=== PATIENT | female | born 1955 | race Asian ===

== ENCOUNTER → 2018-04-05 09:02 | Outpatient (CLI) | payer OTHER, SELFPAY ==
--- NOTE | 2018-04-05 | DI.US.S_ITS ---
PROCEDURE: US PELVIC COMPLETE INDICATIONS: POST MENOPAUSAL BLEEDING TECHNIQUE: Real-time scanning was performed of the pelvic organs, with image documentation. Additional endovaginal scanning was necessary due to incomplete visualization of the adnexal and endometrial structures by transabdominal scanning. COMPARISON: [facility], , PELVIC COMPLETE, 06/12/2015, 13:27. FINDINGS: Transabdominal scanning: Limited scanning through the kidneys shows no hydronephrosis. Multiple right renal cysts present, largest measuring 2.2 cm. No pathologic free abdominal or pelvic fluid. Endovaginal scanning: Uterus: Uterus is normal in size at 5.2 x 2.7 x 3.7 cm. The endometrium is not well-visualized and there is a linear, shadowing echogenic focus. Several non-shadowing punctate echogenic foci seen within the lower uterine segment likely related to residual blood products. Ovaries: Ovaries not visualized bilaterally. No adnexal masses seen. IMPRESSION: 1. Linear, shadowing echogenic focus within the endometrial complex which has an appearance suggesting possible intrauterine device. Recommend clinical correlation and if indicated followup ultrasound could be performed in 6-8 weeks for further assessment. 2. Ovaries not visualized. 3. Right renal cysts. Dictated by: Maximo OHARAA Interpreted: Poonam Vasques MD on 04/05/2018 at 9:59 Approved by: Poonam Vasques MD, PhD on 04/05/2018 at 14:37
== END ==
PROVIDERS: Family Provider Family Medicine; PCP Family Medicine; Visit Provider Nurse Practitioner Family
DX: N95.0 Postmenopausal bleeding (principal); N28.1 Cyst of kidney, acquired
CPT/HCPCS: 76830; 76856

== ENCOUNTER → 2018-06-28 12:43 | Outpatient (CLI) | payer OTHER, SELFPAY ==
--- NOTE | 2018-06-28 | DI.US.S_ITS ---
PROCEDURE: US RENAL COMPLETE INDICATIONS: FOLLOW UP RIGHT RENAL CYST TECHNIQUE: Real-time scanning was performed of the kidneys and bladder, with image documentation. COMPARISON: [facility], , US PELVIC COMPLETE, 04/05/2018, 9:16. FINDINGS: Kidneys: Kidneys are normal in size. Right kidney measures 11.7 cm long; left kidney measures 11.9 cm long. Right renal cortical thickness is 1.0 cm; left renal cortical thickness is 1.2 cm. Renal cortical echotexture is normal. No hydronephrosis or nephrolithiasis. No suspicious solid mass lesions. 3 simple right renal cysts, largest measuring 2.2 cm which is unchanged. 2 simple left renal cysts, largest measuring 13 mm. Bladder: Pre-void bladder volume is 384 mL. Post-void residual is 51 mL. Pre-void images demonstrate no intraluminal masses or stones. On pre-void images, bilateral ureteral jets are noted with color Doppler interrogation. (Of note, ureteral jets may not be detectable in up to 25% of cases due to insufficient differences in specific gravity between ureteral and bladder urine). Miscellaneous: No free pelvic fluid. IMPRESSION: Bilateral simple renal cysts unchanged. Dictated by: Maximo Bolaños [facility] Interpreted: Felipe Rene MD on 06/28/2018 at 16:52 Approved by: Felipe Rene M.D. on 06/29/2018 at 10:00
== END ==
PROVIDERS: Family Provider Family Medicine; PCP Family Medicine; Visit Provider Family Medicine
DX: N28.1 Cyst of kidney, acquired (principal)
CPT/HCPCS: 76770

== ENCOUNTER → 2019-12-03 15:14 | Outpatient (CLI) | payer BC, SELFPAY ==
[2019-12-03 21:57] LABS: COVID19 -Nasal RAPID Negative (Negative)
== END ==
PROVIDERS: Family Provider Family Medicine; PCP Family Medicine; Visit Provider Physician Assistant
DX: Z01.812 Encounter for preprocedural laboratory examination (principal)
CPT/HCPCS: 87635

== ENCOUNTER → 2019-12-06 15:05 | Outpatient (CLI) | payer BC, SELFPAY ==
--- NOTE | 2019-12-07 06:07 | DI.NM.S_ITS ---
DATE OF SERVICE: 12/06/2019 PROCEDURE: Exercise stress test. INDICATIONS: Chest pain. CONSENT: Informed consent was obtained from the patient after explaining benefits and the risks. EXERCISE STRESS TEST: The patient walked on Osvaldo protocol under the supervision of an attending staff. The patient walked for 9 minutes and 01 seconds, achieved 109 percent of target heart rate and normal blood pressure response. The patient achieved 10.1 METs of workload. Functional aerobic impairment -40 percent. Baseline rhythm was sinus. During stress, no convincing ischemic changes. At rest, there were occasional PVCs, but during stress, no significant arrhythmias seen. No chest pain. However, the patient felt pain between her shoulder blades, which got resolved in recovery. CONCLUSION: Exercise stress test is negative for inducible ischemia. Normal hemodynamic response. Functional aerobic impairment -40 percent the patient achieved 10.1 METs of workload. She walked on Osvaldo protocol for 9 minutes and 01 seconds. No significant arrhythmias during stress. The patient had transient pain between her shoulder blades during exercise. As far as exercise stress test is concerned, this is a low-risk exercise stress test. Clinical correlation is recommended. Mabel Rincon - MARIAN/argenis/lc doc#: [id number]/job#: [id number] dd: 12/06/2019 17:08:00 dt: 12/06/2019 19:18:00 DICTATING /COPIES TO: Ata Valencia MD COPIES MNE: CRISTINA;
== END ==
PROVIDERS: Family Provider Family Medicine; PCP Family Medicine; Referring Provider Family Medicine; Visit Provider Family Medicine
DX: R07.89 Other chest pain (principal)
CPT/HCPCS: 93016; 93017

== ENCOUNTER → 2019-12-07 15:41 | Outpatient (CLI) | payer OTHER, SELFPAY ==
--- NOTE | 2019-12-07 | DI.RAD.S_ITS ---
PROCEDURE: XR CHEST 2V INDICATIONS: Chest Pain TECHNIQUE: 2 views of the chest were acquired. COMPARISON: None. FINDINGS: Surgical changes and devices: Clips projecting over the left hemithorax. Lungs and pleura: Lungs are clear. No pleural effusions or pneumothorax. Mediastinum: Mediastinal contours are normal. Heart size is normal. Bones and chest wall: No suspicious bony abnormalities. Soft tissues appear unremarkable. IMPRESSION: No acute cardiopulmonary abnormality. Dictated by: Tariq Lombardo M.D. on 12/07/2019 at 16:17 Approved by: Tariq Lombardo M.D. on 12/07/2019 at 16:19
== END ==
PROVIDERS: Family Provider Family Medicine; PCP Family Medicine; Referring Provider Family Medicine; Visit Provider Family Medicine
DX: R07.89 Other chest pain (principal)
CPT/HCPCS: 71046

== ENCOUNTER → 2020-07-29 14:43 | Outpatient (CLI) | payer MEDICARE, OTHER, SELFPAY | PROVIDERS: Family Provider Family Medicine; PCP Family Medicine; Referring Provider Family Medicine; Visit Provider Family Medicine | DX: M85.89 Other specified disorders of bone density and structure, multiple sites (principal); M85.88 Other specified disorders of bone density and structure, other site | CPT/HCPCS: 77080 ==

== ENCOUNTER → 2020-11-11 10:09 | Outpatient (CLI) | payer MEDICARE, OTHER, SELFPAY ==
[2020-11-11 10:42] LABS: COVID19 -Nasal RAPID Negative (Negative)
== END ==
PROVIDERS: Family Provider Family Medicine; PCP Family Medicine; Visit Provider Physician Assistant
DX: Z20.822 Contact with and (suspected) exposure to COVID-19 (principal)
CPT/HCPCS: 87635

== ENCOUNTER → 2021-03-13 12:50 | Outpatient (CLI) | payer MEDICARE, OTHER, SELFPAY ==
--- NOTE | 2021-03-13 | DI.US.S_ITS ---
PROCEDURE: US PELVIC COMPLETE INDICATIONS: Postmenopausal bleeding TECHNIQUE: Real-time scanning was performed of the pelvic organs, with image documentation. Additional endovaginal scanning was necessary due to incomplete visualization of the adnexal and endometrial structures by transabdominal scanning. COMPARISON: [facility], , US PELVIC COMPLETE, 04/05/2018, 9:16. FINDINGS: Uterus: Uterus is anteverted and normal in size at 5.3 x 2.7 x 3.6 cm. The myometrium is homogeneous. The endometrium measures 1 mm combined thickness. Ovaries: The right ovary measures 1.6 x 0.8 x 1.2 cm. The left ovary measures 2.1 x 0.8 x 0.6 cm. Other: No pathologic free abdominal or pelvic fluid. IMPRESSION: Unremarkable pelvic ultrasound. Normal endometrial thickness. We strive to produce accurate, complete, and clear reports of imaging services. To assist us in improving patient care, this report was composed using standard report templates and voice recognition software. Therefore, it may contain abnormal punctuation, insertions and/or omissions. Occasional wrong-word or sound-alike substitutions may occur. Though we review the report and make efforts to correct it, we do recommend that the report be read carefully in proper context to recognize any text inaccuracies. Dictated by: Martín Martinez M.D. on 03/13/2021 at 14:26 Approved by: Martín Martinez M.D. on 03/13/2021 at 14:31
== END ==
PROVIDERS: Family Provider Family Medicine; PCP Family Medicine; Referring Provider Internal Medicine; Visit Provider Internal Medicine
DX: N95.0 Postmenopausal bleeding (principal); Z85.3 Personal history of malignant neoplasm of breast
CPT/HCPCS: 76856

== ENCOUNTER → 2021-08-27 11:25 | Outpatient (CLI) | payer MEDICARE, OTHER, SELFPAY ==
--- NOTE | 2021-08-27 | DI.CT.S_ITS ---
PROCEDURE: CT ABDOMEN PELVIS W CON INDICATIONS: Pelvic and perineal pain TECHNIQUE: After the administration of oral and IV contrast, axial sections were acquired from the lung bases to the pubic symphysis. Coronal and sagittal reformats were performed. For radiation dose reduction, the following was used: automated exposure control, adjustment of mA and/or kV according to patient size. COMPARISON: [facility], , PELVIC COMPLETE, 03/13/2021, 13:03. FINDINGS: Image quality: Excellent. Lung bases: Unremarkable. Heart: No significant findings. ABDOMEN: Liver: Normal size. Mild hepatic steatosis. There is a 1.1 cm hypodense nodule near the hepatic dome, most likely a cyst. Gallbladder: Unremarkable. Biliary ducts: Unremarkable. Pancreas: Unremarkable. Spleen: Unremarkable. Adrenal Glands: Mild left adrenal thickening or a small 0.7 cm left adrenal nodule. Kidneys and Ureters: Normal size and symmetrical enhancement. Bilateral hypodense cortical nodules are present, most likely renal cysts. Stomach and Bowel: Stomach, small bowel loops, and colon are normal in caliber. There is wall thickening of stomach and duodenum. There is diverticulosis without diverticulitis. Peritoneum: No abnormal intraperitoneal fluid. No free air. Ventral Wall: No hernia. Abdominal Nodes: No retroperitoneal or mesenteric adenopathy by size criteria. Vessels: Aorta and inferior vena cava are normal in size. PELVIS: Pelvic Organs: Suboptimally visualized due to metallic artifacts from bilateral hip prosthesis. Bladder: Unremarkable. Pelvic Nodes: No enlarged lymph nodes. Miscellaneous: No inguinal hernias are seen. Bones: Scoliosis and moderate to severe degenerative changes in lumbar spine. Mild anterior wedge deformity of L2 involving the superior endplate. Bilateral hip arthroplasties. Metallic artifacts partially obscure pelvis IMPRESSION: 1. A cause for pelvic pain is not identified. Pelvis is suboptimally visualized due to metallic artifacts from bilateral hip prosthesis. Consider pelvic ultrasound exam if clinically indicated. 2. Diverticulosis without diverticulitis. 3. Mild hepatic steatosis. 4. Mild wall thickening of stomach and duodenum. Differential diagnoses include gastritis/duodenitis versus artifact from inadequate distention. Dictated by: Humberto Seals M.D. on 08/27/2021 at 16:26 Approved by: Humberto Seals M.D. on 08/28/2021 at 22:24
== END ==
PROVIDERS: Family Provider Family Medicine; PCP Family Medicine; Referring Provider Family Medicine; Visit Provider Family Medicine
DX: R10.2 Pelvic and perineal pain (principal); K57.90 Diverticulosis of intestine, part unspecified, without perforation or abscess without bleeding; K76.0 Fatty (change of) liver, not elsewhere classified; E27.9 Disorder of adrenal gland, unspecified; K31.9 Disease of stomach and duodenum, unspecified
CPT/HCPCS: 74177

== ENCOUNTER 2021-12-21 07:13 | Day surgery (SDC) | payer MEDICARE, OTHER, SELFPAY ==
--- NOTE | 2021-12-21 | PATH_ITS ---
[facility] Accession Number: [id number] . 01 Material submitted: . PART A: gastrointestinal site - ANTRUM PART B: gastrointestinal site - GASTRIC POLYP . 01 Diagnosis: A. Gastric Antrum, Biopsy: Helicobacter pylori gastritis. Scattered forms morphologically consistent with Helicobacter pylori seen on H/E stain. Negative for intestinal metaplasia. Negative for dysplasia or malignancy. . B. Gastric Polyp, Biopsy: Helicobacter pylori gastritis. Negative for intestinal metaplasia. Negative for dysplasia or malignancy. . [facility] 12/24/2021 1743 Local . 01 Electronically signed: . Rayray Lopez MD, PhD, Pathologist NPI- [id number] . 01 Gross description: . A. Received in formalin, labeled with the patient's name and antrum, and consists of three irregular miguel soft tissue fragments ranging from 0.2 cm to 0.3 cm in greatest dimension. Submitted entirely in cassette A1. B. Received in formalin, labeled with the patient's name and gastric polyp, and consists of a single irregular miguel soft tissue fragment measuring 0.3 cm in greatest dimension. Submitted entirely in cassette B1. ([id number]) /FRR 12/24/2021 0321 Local . 01 Pathologist provided ICD-10: K29.70, B96.81 . 01 CPT . 749280, 734494 Specimen Comment: A courtesy copy of this report has been sent to [phone] Performed at: 01 [facility] [address] [place] [address] [id number] MD Alvin Fuchs MD Phone: [phone]
[2021-12-21 07:46] VITALS: BP 104/70; PULSE 77; RESP 16; TEMP 36.9; O2SAT 97; BMI 20.7
[2021-12-21 07:54] LABS: COVID19 -Nasal RAPID Negative (Negative)
--- NOTE | 2021-12-21 08:04 | PM.HP.1 ---
History of Present Illness History of Present Illness Date Patient Seen: 12/21/21 Time Patient Seen: 08:04 Chief complaint: SDC Narrative: I reviewed my recent office note from last month. She has not really tolerated the psyllium fiber. This has created some abdominal discomfort so she stopped this. Patient History Surgical History History of hip replacement History of knee replacement Status post surgery (02/04/14) Status post surgery (07/11/15) Family & Social History Social History: household members spouse Tobacco & Substance use: Smoking Status Never smoker alcohol intake current alcohol intake frequency a few times a month Substance Use Type does not use Meds Home Medications and Allergies Home Medications Medication Instructions Recorded Confirmed Type pravastatin 10 mg tablet 10 mg PO BEDTIME 12/21/21 12/21/21 History Allergies Allergy/AdvReac Type Severity Reaction Status Date / Time Penicillins Allergy Unknown AIRWAY Verified 12/21/21 07:35 SWELLS Sulfa (Sulfonamide Allergy Unknown RASH Verified 12/21/21 07:35 Antibiotics) Review of Systems Review of Systems ROS: Yes All systems reviewed with the patient and are negative except as otherwise documented Exam Vital Signs (past 8 hours): - 12/21/21 07:46 Temperature 98.5 F Pulse Rate 77 Respiratory Rate 16 Blood Pressure 104/70 Pulse Oximetry 97 Oxygen Delivery Method Room Air Oxygen Delivery Method Room Air Const General: cooperative HENMT Head: normal to inspection Eyes General: appearance normal, both eyes and all related structures Neck Neck: normal visual inspection Chest Chest: normal inspection of the chest Resp Effort & Inspection: normal respiratory effort Cardio Rate: regular rate GI Inspection: normal to inspection Skin General: no rashes or lesions noted Neuro General: patient alert and patient awake Extrem General: normal to inspection and no pedal edema Psych Appearance: grossly normal Objective Labs Labs: Laboratory Results - last 24 hr 12/21/21 07:33 SARS-CoV-2 (PCR) Negative Assessment & Plan Assessment & Plan narrative: 66-year-old female with abnormal CT imaging showing thickening in the distal stomach and duodenum. She has some abdominal pain. EGD is pursued today. Time Spent With Patient Critical Care time: I spent a total of [] minutes of critical care time on this patient's care today; this time is exclusive of procedural time.
--- NOTE | 2021-12-21 08:06 | PM.PREOP ---
Pre-operative Note COVID-19 COVID-19 status: Negative Result date/Date tested (Pos, Neg/Pending): 12/21/21 Criteria for continued procedure: Possibility delay results in more complex future surgery or treatment Interval Note History & Physical reviewed/Exam performed by Physician: Yes Changes to H&P: No ASA Class (for procedural sedation): II
[2021-12-21] MEDS: SODIUM CHLORIDE 0.9% 1,000 ML 84 ML IV (08:09)
[2021-12-21 08:57] VITALS: BP 92/58; PULSE 60; RESP 16; TEMP 36.3; O2SAT 94
--- NOTE | 2021-12-21 08:57 | PM.OP.EGD ---
Operative Date/Time/Diagnoses Date of procedure: 12/21/21 Time of procedure: 08:57 Pre-op diagnosis: Abnormal imaging showing concern for peptic ulcer disease or inflammation in the distal stomach duodenal region. Post-op diagnosis: same Procedure & Clinicians Study performed: EGD with biopsies Same procedure as scheduled: Yes Indications: Abnormal imaging showing concern for peptic ulcer disease or inflammation in the distal stomach duodenal region. Surgeon: Sal Ramirez Procedure Notes SCOAP/Timeout: Done Procedure in detail: After the risks and benefits were explained, written and verbal informed consent was obtained. The patient was brought into the procedure room and placed into the left lateral decubitus position. Please see nurse [facility] division director notes for sedation details. The scope was introduced into the mouth through the bite block and advanced under direct visualization to the 2nd portion of the duodenum. The scope was slowly withdrawn carefully examining the mucosa for any defects or lesions. Retroflexed views were accomplished in the stomach. The stomach was decompressed, the scope was then removed from the patient who tolerated the procedure well. Sedation minutes: 14 Complications: none Impression: 1. Duodenum: This was visually normal from the bulb through the 2nd portion with the exception of a fairly sharply angulated corner between the bulb and D2. 2. Stomach: No outlet obstruction no mass lesions no ulcers. Mild erosive gastropathy was appreciated and antral biopsies were therefore acquired for exclusion of Helicobacter or other pathology. Retroflexed views of the LES were unremarkable with the exception of a small diminutive polyp in the body that was addressed with cold forceps. 3. Esophagus: The squamocolumnar junction correlated with the top of the gastric folds. GEJ was at 42 cm from the incisors. No acute erosive changes. No significant abnormalities throughout the esophagus. Endoscopic diagnosis 1. Erosive gastropathy 2. Diminutive gastric polyp Post-procedure Plan for aftercare: 1. Await histopathology. 2. If Helicobacter is found it will need to be eradicated with standard triple therapy. Disposition: PACU
[2021-12-21 09:02] VITALS: BP 95/60; PULSE 59; RESP 17; O2SAT 95
[2021-12-21 09:08] VITALS: BP 106/74; PULSE 63; RESP 20; TEMP 36.4; O2SAT 98
[2021-12-21 09:13] VITALS: BP 102/64; PULSE 60; RESP 17; TEMP 36.6; O2SAT 98
== END 2021-12-21 09:25 | disposition home or self-care (01) ==
PROVIDERS: Family Provider Family Medicine; PCP Family Medicine; Referring Provider Internal Medicine Gastroenterology; Visit Provider Internal Medicine Gastroenterology
PROC: 0DJ08ZZ Inspection of Upper Intestinal Tract, Via Natural or Artificial Opening Endoscopic (ICD-10-PCS; CPT 43235; principal; 2021-12-21 08:30)
DX: K29.60 Other gastritis without bleeding (principal); B96.81 Helicobacter pylori [H. pylori] as the cause of diseases classified elsewhere; K31.9 Disease of stomach and duodenum, unspecified; K31.7 Polyp of stomach and duodenum; Z20.822 Contact with and (suspected) exposure to COVID-19
CPT/HCPCS: 43239; 87635; C9803; J2704

== ENCOUNTER 2021-12-29 21:53 | Emergency (ER) | payer MEDICARE, OTHER, SELFPAY ==
[2021-12-29 22:00] VITALS: BP 146/89; PULSE 74; RESP 20; TEMP 36.4; O2SAT 100
[2021-12-29] MEDS: diphenhydrAMINE 50 MG/ML VIAL 25 MG IV (22:24)
[2021-12-29] MEDS: methylPREDNISolone 125 MG/2 ML VIAL IV (22:25)
[2021-12-29] MEDS: EPINEPHrine 1 MG/ML 0.5 MG IM (22:25)
--- NOTE | 2021-12-29 22:26 | ED.ALLEREA ---
HPI - Allergic Reaction General Chief complaint: Allergic Reaction Stated complaint: possible allergic reaction to antibiotics Time Seen by Provider: 12/29/21 22:06 Source: patient Mode of arrival: Ambulatory History of Present Illness HPI narrative: Patient is a 66-year-old female who started taking Cipro and Flagyl for H pylori. She took her 1st dose today at noon by 9:00 p.m. she started itching all over felt like her throat was closing. She has previously had anaphylactic reaction to penicillin. She does not feel like her voice is muffled she does not have lip swelling or tongue swelling. His she denies chest tightness or palpitations. No abdominal pain nausea or vomiting. Related Data Home Medications Medication Instructions Recorded Confirmed pravastatin 10 mg tablet 10 mg PO BEDTIME 12/21/21 12/21/21 Previous Rx's Medication Instructions Recorded epinephrine 0.3 mg/0.3 mL 0.3 mg (0.3 mL) IM Q5-15M PRN 12/30/21 injection, auto-injector anaphylaxis #2 ea prednisone 20 mg tablet 40 mg PO DAILY #10 tabs 12/30/21 Allergies Allergy/AdvReac Type Severity Reaction Status Date / Time Penicillins Allergy Unknown AIRWAY Verified 12/21/21 07:35 SWELLS Sulfa (Sulfonamide Allergy Unknown RASH Verified 12/21/21 07:35 Antibiotics) Review of Systems Review of Systems Narrative: GENERAL: Denies chills, fatigue, malaise, fever, sweats, travel HEENT: See HPI RESPIRATORY: Denies dyspnea, cough, wheezing, hemoptysis, sputum. CARDIOVASCULAR: Denies chest pain, palpitations, orthopnea, edema GASTROINTESTINAL: Denies nausea, vomiting, abdominal pain, diarrhea, constipation, melena. : Denies dysuria, frequency, incontinence, hematuria, urinary retention, flank pain. MUSCULOSKELETAL: Denies weakness, joint pain, or bony pain SKIN: No rash, no erythema, no pruritus NEUROLOGIC: Denies weakness, dizziness, headache, numbness, change in speech, confusion PSYCHIATRIC: No concerning psychosocial issues. 12 point review of systems is negative except for those stated above and HPI Patient History Surgical History History of hip replacement History of knee replacement Status post surgery (02/04/14) Status post surgery (05/20/16) Social History household members: spouse Smoking Status: Never smoker alcohol intake: current Smoking Status: Never smoker alcohol intake frequency: a few times a month Substance Use Type: does not use Exam Initial Vital Signs Initial Vital Signs: Vital Signs Temperature 97.5 F L 12/29/21 22:00 Pulse Rate 74 12/29/21 22:00 Respiratory Rate 20 12/29/21 22:00 Blood Pressure 146/89 H 12/29/21 22:00 Pulse Oximetry 100 12/29/21 22:00 Oxygen Delivery Method 12/29/21 22:00 GENERAL: Alert well-appearing 66-year-old female HEENT: Head atraumatic,EOMI, pupils reactive, no tongue swelling no lip swelling no stridor CARDIOVASCULAR: Regular rate and rhythm without murmurs, rubs or gallops. RESPIRATORY: Breath sounds equal bilaterally, no wheezes rales or rhonchi. ABDOMEN: Soft, nontender. Normoactive bowel sounds all 4 quadrants. No guarding or rebound. EXTREMITIES: Normal range of motion, no clubbing or edema. Neurovascularly intact NEUROLOGICAL: Alert and oriented x4.Normal gait and speech. SKIN: Warm, dry, no laceration, no petechiae, no rashes or lesions. No hives no urticaria Course Orders Ordered: Discontinued Medications Diphenhydramine HCl (Diphenhydramine 50 Mg/Ml Vial) 25 mg IV NOW ONE Stop: 12/29/21 22:07 Last Admin: 12/29/21 22:24 Dose: 25 mg Documented By: SANDRA Epinephrine HCl (Epinephrine 1 Mg/Ml) 0.5 mg IM NOW ONE Stop: 12/29/21 22:07 Last Admin: 12/29/21 22:25 Dose: 0.5 mg Documented By: SANDRA Famotidine (Famotidine 20 Mg/2 Ml Vial) 20 mg IV NOW BLAYNE Glucagon (Glucagon,Human Recombinant 1 Mg/Ml Vial) 1 mg IV NOW ONE Stop: 12/29/21 22:37 Methylprednisolone (Methylprednisolone 125 Mg/2 Ml Vial) 125 mg IV NOW ONE Stop: 12/29/21 22:07 Last Admin: 12/29/21 22:25 Dose: 125 mg Documented By: SANDRA Pantoprazole Sodium (Pantoprazole 40 Mg Vial) 40 mg IV NOW ONE Stop: 12/29/21 22:37 Vital Signs Vital signs: Vital Signs - 8 hr 12/29/21 22:00 12/29/21 23:18 12/29/21 23:19 Temperature 97.5 F L Pulse Rate 74 82 Respiratory Rate 20 39 H Blood Pressure 146/89 H 118/59 L Pulse Oximetry 100 97 Oxygen Delivery Method Room Air 12/29/21 23:19 12/29/21 23:30 12/29/21 23:30 Temperature Pulse Rate 79 67 Respiratory Rate 27 H 28 H Blood Pressure 103/57 L Pulse Oximetry 99 96 Oxygen Delivery Method 12/30/21 00:00 12/30/21 00:02 12/30/21 00:02 Temperature Pulse Rate 72 67 Respiratory Rate 28 H Blood Pressure 111/58 L Pulse Oximetry 97 Oxygen Delivery Method 12/30/21 00:30 12/30/21 00:30 12/30/21 01:00 Temperature Pulse Rate 64 Respiratory Rate 22 Blood Pressure 108/57 L 113/61 Pulse Oximetry 95 Oxygen Delivery Method 12/30/21 01:00 12/30/21 01:30 12/30/21 01:30 Temperature Pulse Rate 65 62 Respiratory Rate 20 15 Blood Pressure 110/63 Pulse Oximetry 95 95 Oxygen Delivery Method MDM - Allergic Reaction Lab Data Labs: Urine Dip Bedside Urine Glucose Negative Bedside Urine Bilirubin - Negative Bedside Urine Ketone - Negative Urine Specific [place] 1.010 Bedside Urine Occult Blood - Negative Bedside Urine pH 6.0 Bedside Urine Protein - Negative Bedside Urine Urobilinogen - Negative Bedside Urine Nitrite - Negative Bedside Urine Leukocytes - Negative Esterase MDM Narrative Medical decision making narrative: Patient was given medication epinephrine Benadryl Solu-Medrol and Pepcid for anaphylaxis. Suddenly she started having difficulty swallowing she said she is feeling fine breathing she is not in respiratory distress but appears to have esophageal spasm. She is given [place] seems to help she is not vomiting overall feeling better says that she is feeling jittery. She is monitored in the ED for number of hours. She really has no hives urticaria lip swelling tongue swelling or other signs of significant anaphylaxis. His he was high-pitched voice but I think this is her normal voice. She has not given any further medication other than when she 1st arrived. Unclear what exactly she is allergic to she was previously on classroom ice and metronidazole and omeprazole. She states that she has previously had allergic to erythromycin. Overall patient appears well. She is given prescription for prednisone and epinephrine pen. Not sure what happened with patient's esophagus but it does seem to be like possible esophageal spasm. I had just given her sponge with some water which may have caused her soft BS to spasm. Med at this time she does not require any further medication for that either. Discharge Plan Departure Patient Disposition: Home Clinical Impression: Acute anaphylaxis, Spasm of esophagus Instructions: DI for Anaphylaxis Activity Restrictions/Additional Instructions: *You have been diagnosed with anaphylaxis *What to do: At this time he likely had allergic reaction to 1 of your antibiotics. Difficult to tell which one *Continue to take medications as directed--> SENT TO [facility] Prednisone 40 mg once a day for 5 days Benadryl 25 mg every 6 hours if needed for itching or allergy Epinephrine IM in his thigh if needed for throat swelling allergic reaction *Follow up with your primary care provider in 2-3 days or call [phone] *Return to ER if you should have increased throat tightening difficulty breathing throat closing lip swelling tongue swelling or any new, worsening or concerning symptoms Prescriptions: New epinephrine 0.3 mg/0.3 mL auto-injector 0.3 mg IM Q5-15M PRN (Reason: anaphylaxis) Qty: 2 0RF Rx Instructions: do not exceed 3 doses per episode prednisone 20 mg tablet 40 mg PO DAILY Qty: 10 0RF No Action pravastatin 10 mg Tablet 10 mg PO BEDTIME Referrals: Chuy Pineda MD [Primary Care Provider] - Visit Report Forms: Patient Portal/API
[2021-12-29 23:18] VITALS: PULSE 82; RESP 39; O2SAT 97
[2021-12-29 23:19] VITALS: BP 118/59; PULSE 79; RESP 27; O2SAT 99
[2021-12-29 23:30] VITALS: BP 103/57; PULSE 67; RESP 28; O2SAT 96
[2021-12-30] VITALS: PULSE 72
[2021-12-30 00:02] VITALS: BP 111/58; PULSE 67; RESP 28; O2SAT 97
[2021-12-30 00:30] VITALS: BP 108/57; PULSE 64; RESP 22; O2SAT 95
[2021-12-30 01:00] VITALS: BP 113/61; PULSE 65; RESP 20; O2SAT 95
[2021-12-30 01:30] VITALS: BP 110/63; PULSE 62; RESP 15; O2SAT 95
== END 2021-12-30 01:39 | disposition home or self-care (01) ==
PROVIDERS: Emergency Provider Emergency Medicine; Family Provider Family Medicine; PCP Family Medicine
DX: T78.2XXA Anaphylactic shock, unspecified, initial encounter (principal); K22.4 Dyskinesia of esophagus
CPT/HCPCS: 81003; 96372; 96374; 96375; 99284; J0171; J1200; J2930

== ENCOUNTER → 2022-03-29 09:29 | Outpatient (CLI) | payer MEDICARE, OTHER, SELFPAY ==
[2022-03-30 13:34] LABS: Interpretation Negative (Negative)
== END ==
PROVIDERS: Family Provider Family Medicine; PCP Family Medicine; Referring Provider Internal Medicine Gastroenterology; Visit Provider Internal Medicine Gastroenterology
DX: K29.60 Other gastritis without bleeding (principal)
CPT/HCPCS: 36415; 83013

== ENCOUNTER → 2022-04-13 12:18 | Outpatient (CLI) | payer MEDICARE, OTHER, SELFPAY ==
--- NOTE | 2022-04-13 | DI.RAD.S_ITS ---
PROCEDURE: XR KNEE RT 3V INDICATIONS: RIGHT KNEE PAIN TECHNIQUE: 3 views of the knee were acquired. COMPARISON: None. FINDINGS: Bones: No fractures or dislocations. No suspicious bony lesions. Right knee lateral unicondylar arthroplasty is been placed with prosthetic components in expected position. No periprosthetic fractures or evidence of loosening/infection. Severe lateral patellofemoral knee joint space narrowing with periarticular osteophyte formation. Mild lateral patellar tilt and migration. Soft tissues: No joint effusion. No suspicious soft tissue calcifications. IMPRESSION: 1. Lateral unicondylar arthroplasty with prosthetic components in expected positions. 2. Right knee joint degeneration, severe involving the lateral patellofemoral knee joint. Dictated by: Maximo Bolaños [facility] Interpreted: Jered Sheikh MD on 04/13/2022 at 13:02 Transcribed by: MAXIM on 04/13/2022 at 13:04 Approved by: Jered Sheikh M.D. on 04/13/2022 at 20:15
== END ==
PROVIDERS: Family Provider Family Medicine; PCP Family Medicine; Referring Provider Family Medicine; Visit Provider Family Medicine
DX: M17.11 Unilateral primary osteoarthritis, right knee (principal); M25.561 Pain in right knee; Z96.651 Presence of right artificial knee joint
CPT/HCPCS: 73562

== ENCOUNTER → 2022-06-30 12:37 | Outpatient (CLI) | payer MEDICARE, OTHER, SELFPAY ==
--- NOTE | 2022-06-30 12:37 | DI.US.S_ITS ---
PROCEDURE: US PELVIC COMPLETE INDICATIONS: Post menopausal bleeding, Chronic pelvic pain TECHNIQUE: Real-time scanning was performed of the pelvic organs, with image documentation. Additional endovaginal scanning was necessary due to incomplete visualization of the adnexal and endometrial structures by transabdominal scanning. COMPARISON: [facility], US, US PELVIC COMPLETE, 03/13/2021, 13:03. FINDINGS: Uterus: Uterus is anteverted and normal in size at 5.5 x 2.0 x 3.6 cm. The myometrium is homogeneous. The endometrium measures 1.2 mm combined thickness. Ovaries: The right ovary measures 1.9 x 0.8 x 1.1 cm. The left ovary measures is not visualized. No adnexal masses are seen. Other: No pathologic free abdominal or pelvic fluid. IMPRESSION: 1. Endometrium within normal limits for thickness in a postmenopausal patient. 2. Left ovary not visualized. We strive to produce accurate, complete, and clear reports of imaging services. To assist us in improving patient care, this report was composed using standard report templates and voice recognition software. Therefore, it may contain abnormal punctuation, insertions and/or omissions. Occasional wrong-word or sound-alike substitutions may occur. Though we review the report and make efforts to correct it, we do recommend that the report be read carefully in proper context to recognize any text inaccuracies. Dictated by: Heather Martin M.D. on 06/30/2022 at 15:31 Approved by: Heather Martin M.D. on 06/30/2022 at 15:33
== END ==
PROVIDERS: Family Provider Family Medicine; PCP Family Medicine; Referring Provider Obstetrics & Gynecology; Visit Provider Obstetrics & Gynecology
DX: N95.0 Postmenopausal bleeding (principal); R10.2 Pelvic and perineal pain
CPT/HCPCS: 76830; 76856

== ENCOUNTER → 2023-01-03 14:11 | Outpatient (CLI) | payer MEDICARE, OTHER, SELFPAY ==
--- NOTE | 2023-01-03 | DI.RAD.S_ITS ---
Bone Density Report Name: JORGE COOLEY Age: 67 Sex: Female Ethnicity: Date of : 1955 Indication: osteopenia; Referring Provider: ANSHU ACOSTA Study: Bone densitometry was performed. Exam Date: January 03, 2023 Accession number: [id number] Bone Density: Region BMD T-score Z-score Classification AP Spine(L1, L2) 0.847 -1.2 0.6 Osteopenia Total Forearm (Left) 0.594 0.3 2.1 Normal 1/3 Forearm (Left) 0.731 0.6 2.5 Normal UD Forearm (Left) 0.425 -0.3 1.0 Normal World Health Organization criteria for BMD impression classify patients as: Normal (T-score at or above -1.0), Osteopenia (T-score between -1.0 and -2.5), or Osteoporosis (T-score at or below -2.5). Previous Exams: -- Region Exam Age BMD T-score BMD Change BMD Change Date g/cm2 vs Baseline vs Previous -- AP Spine (L1-L2) 01/03/2023 67 0.847 -1.2 0.008 (0.9%)# 0.004 (0.5%)# 07/29/2020 65 0.843 -1.2 0.003 (0.4%) 0.006 (0.8%) 01/27/2017 61 0.836 -1.3 -0.003 (-0.4%) -0.003 (-0.4%) 01/09/2015 59 0.839 -1.3 -- *Denotes significance at 95% confidence level, LSC for AP Spine = 0.022 g/cm2 Rate of change results reflect vertebral levels common to all scans # Denotes dissimilar scan types or analysis methods Impression: The patient has low bone mass, based on the Total Spine T-score. No significant bone loss was observed. Discussion: BONE DENSITY IS LOW AT ONE OR MORE SKELETAL SITES. This patient's lowest T-score is low at one or more skeletal sites. It meets the World Health Organization's (WHO) criteria for low bone mass (T-score between -1.0 and -2.5). The patient's 10-year risk of fracture as calculated by FRAX is less than the threshold where pharmacological therapy is recommended by the National Osteoporosis Foundation (NOF). However, all treatment decisions require clinical judgment and consideration of individual patient factors, including patient preferences, comorbidities, previous drug use, risk factors not captured in the FRAX model (e.g., frailty, falls, vitamin D deficiency, increased bone turnover, interval significant decline in bone density) and possible under or overestimation of fracture risk by FRAX. The patient should follow a healthful lifestyle (good nutrition with adequate calcium and vitamin D, and appropriate weight-bearing exercise). Follow-Up: Consider repeating this study in 2 to 3 years to reassess this patient's status, or sooner if there is some new clinical indication. Reported by: QUANG MESA M.D. on 01/03/2023 2:33:00 PM.
== END ==
PROVIDERS: Family Provider Family Medicine; PCP Family Medicine; Referring Provider Family Medicine; Visit Provider Family Medicine
DX: M85.89 Other specified disorders of bone density and structure, multiple sites (principal)
CPT/HCPCS: 77080

== ENCOUNTER → 2023-06-21 11:00 | Outpatient (CLI) | payer MEDICARE, OTHER, SELFPAY ==
--- NOTE | 2023-06-21 11:02 | DI.CT.S_ITS ---
PROCEDURE: CT SOFT TISSUE NECK W CON INDICATIONS: Localized swelling, mass and lump, neck TECHNIQUE: After the administration of intravenous contrast, 3.0 mm axial sections acquired from the sella to the aortic arch. Additional oblique axial 3.0 mm sections acquired through the pharynx. 3 mm thick coronal and sagittal reformats were generated. For radiation dose reduction, the following was used: automated exposure control. COMPARISON: None. FINDINGS: Skull Base: The visualized intracranial contents, skull, and orbits are unremarkable. Visualized paranasal sinuses are clear. Pharynx and Larynx: The nasopharyngeal airway is patent and midline. Parapharyngeal soft tissues including palatine tonsils and base of the tongue are normal. Retropharyngeal space unremarkable. Normal appearance of the false and true vocal cords. Muscles and Fascial Planes: Fascial planes are well maintained. No abscess or mass lesion. Lymph Nodes: No evidence of adenopathy. Vasculature: Unremarkable. Submandibular and Parotid Glands: Normal in size and attenuation. Thyroid: Unremarkable. No enlarged or calcified nodules. Bones: No acute fracture. No osteolytic or blastic lesion is evident. Normal bone mineralization. Lung Apices: The visualized lung apices are clear. IMPRESSION: 1. Unremarkable CT neck. Skin marker over the right parotid noted. Approved by: Luis Moralez M.D. on 06/21/2023 at 17:43
== END ==
PROVIDERS: Family Provider Family Medicine; PCP Family Medicine; Referring Provider Family Medicine; Visit Provider Family Medicine
DX: R22.1 Localized swelling, mass and lump, neck (principal)
CPT/HCPCS: 70491; Q9967

== ENCOUNTER → 2023-08-11 06:40 | Outpatient (CLI) | payer MEDICARE, OTHER, SELFPAY ==
--- NOTE | 2023-08-11 06:41 | DI.ECHO.S_ITS ---
[facility] : : [id number] : : [place] : : [id number] : : Phone: [phone] Echocardiogram Report + + :Name: JORGE COOLEY Study Date: 08/11/2023 Height: 65 in : :[facility] ReadingLocation: Weight: 125 lb : : Gender: Female BSA: 1.6 m2 : :: 1955 Age: 68 yrs BP: 112/62 mmHg: :Reason For Study: CARDIAC MURMUR : :Ordering Physician: DAVE : :ANSHU Performed By: Jose L Spring : :Referring: ANSHU ACOSTA : + + Interpretation Summary The ejection fraction is estimated to be 60-65%. There is mild tricuspid regurgitation. Procedure: A two-dimensional transthoracic echocardiogram with color flow and Doppler was performed. The study quality was technically adequate. There is no prior echocardiogram noted for this patient. The patient was in sinus rhythm with heart rates between 64-76 bpm during the exam. Left Ventricle: The left ventricle is normal in size and wall thickness. The ejection fraction is estimated to be 60-65%. Left ventricular wall motion is normal. Right Ventricle: The right ventricle is normal size. The right ventricular systolic function is normal. Atria: The left atrial size is normal. Right atrial size is normal. The interatrial septum grossly appears intact with no obvious evidence for an atrial septal defect. Mitral Valve: The mitral valve is normal. There is no mitral valve stenosis. There is trace mitral regurgitation. Aortic Valve: The aortic valve is trileaflet. There is no aortic valve stenosis. No aortic regurgitation is present. Tricuspid Valve: The tricuspid valve is normal. There is no tricuspid stenosis. There is mild tricuspid regurgitation. The right ventricular systolic pressure is estimated to be at least 30 mmHg based on an estimated right atrial pressure of 3 mm Hg. Pulmonic Valve: The pulmonic valve is not well visualized. There is no pulmonic valvular stenosis. There is no pulmonic valvular regurgitation. Great Vessels: The aortic root is normal size. The dimensions of the ascending aorta are normal. The IVC is of normal diameter and collapses greater than 50% with a sniff. This suggests a low right atrial pressure of 3 mm Hg. Pericardium/ Pleura There is no pericardial effusion. There is no pleural effusion. MMode/2D Measurements & Calculations LVIDd: 4.2 cm LVOT diam: 2.0 cm LVIDs: 3.2 cm Ao root diam: 3.0 cm FS: 23.3 % asc Aorta Diam: 2.9 cm IVSd: 0.87 cm Ao Arch Diam (Prox Trans): 2.2 cm LVPWd: 0.79 cm LV rodriguez. diameter/BSA (cm/m^2): 2.6 LV sys. diameter/BSA (cm/m^2): 2.0 LA A2 area: 17.5 cm2 RA long axis: 4.6 cm LA A4 area: 17.3 cm2 RA area: 14.7 cm2 LA length (vol): 5.0 cm RA vol: 40.3 ml LA vol: 51.5 ml RA : 24.9 ml/m2 LA vol index: 31.8 ml/m2 IVC diam: 1.2 cm RVD1 (basal): 3.5 cm RVD2 (mid): 3.3 cm TAPSE: 2.2 cm Doppler Measurements & Calculations Ao V2 max: 158.9 cm/sec LVOT Max Eulogio: 103.4 cm/sec Ao V2 mean: 122.9 cm/sec LV V1 max P.3 mmHg Ao max P.1 mmHg LV V1 VTI: 23.9 cm Ao mean P.4 mmHg NIKITA(I,D): 2.1 cm2 Ao V2 VTI: 34.6 cm NIKITA(V,D): 2.0 cm2 sev ratio: 0.69 NKIITA indexed to BSA (cm^2/m^2): 1.3 MV E max eulogio: 77.6 cm/sec TR max eulogio: 253.1 cm/sec MV A max eulogio: 95.0 cm/sec TR max P.9 mmHg MV E/A: 0.82 PA V2 max: 108.6 cm/sec Med Peak E' Eulogio: 5.9 cm/sec PA V2 mean: 71.9 cm/sec E/E' med: 13.2 PA mean P.4 mmHg Lat Peak E' Eulogio: 8.4 cm/sec PA pr(Accel): 44.7 mmHg E/E' lat: 9.2 E/e' average: 11.2 MV dec time: 0.20 sec SV(LVOT): 72.5 ml Reading Physician:02:59 PM
== END ==
PROVIDERS: Family Provider Family Medicine; PCP Family Medicine; Referring Provider Family Medicine; Visit Provider Family Medicine
DX: I07.1 Rheumatic tricuspid insufficiency (principal); R01.1 Cardiac murmur, unspecified
CPT/HCPCS: 93306

== ENCOUNTER → 2024-09-28 15:11 | Outpatient (CLI) | payer MEDICARE, OTHER, SELFPAY ==
--- NOTE | 2024-09-28 15:12 | DI.US.S_ITS ---
PROCEDURE: US PELVIC COMPLETE INDICATIONS: pmb, brownish discharge since february. TECHNIQUE: Real-time scanning was performed of the pelvic organs, with image documentation. Additional endovaginal scanning was necessary due to incomplete visualization of the adnexal and endometrial structures by transabdominal scanning. COMPARISON: [facility], , US PELVIC COMPLETE, 06/30/2022, 13:14. FINDINGS: Uterus: Uterus is anteverted and normal in size at 4.5 x 2.4 x 4.1 cm. The myometrium is homogeneous. The endometrium measures 1.6 mm combined thickness. No focal lesion seen. Ovaries: Not seen bilaterally. Other: No pathologic free abdominal or pelvic fluid. IMPRESSION: 1. Thin endometrial stripe measuring 1.6 mm, no focal lesion seen. 2. Nonvisualization of either ovary. No adnexal mass. We strive to produce accurate, complete, and clear reports of imaging services. To assist us in improving patient care, this report was composed using standard report templates and voice recognition software. Therefore, it may contain abnormal punctuation, insertions and/or omissions. Occasional wrong-word or sound-alike substitutions may occur. Though we review the report and make efforts to correct it, we do recommend that the report be read carefully in proper context to recognize any text inaccuracies. Dictated by: Hema Alfred M.D. on 09/29/2024 at 17:23 Approved by: Hema Alfred M.D. on 09/29/2024 at 17:24
== END ==
LOC: US 15:12
PROVIDERS: Family Provider Family Medicine; PCP Family Medicine; Referring Provider Obstetrics & Gynecology; Visit Provider Obstetrics & Gynecology
DX: N95.0 Postmenopausal bleeding (principal)
CPT/HCPCS: 76830; 76856